=== PATIENT | male | born 1965 | race Caucasian/White ===

== ENCOUNTER 2016-07-04 09:57 | Inpatient (IN) | payer MEDICAID ==
[~2016-07-04] VITALS: Ht 175.3 cm; Wt 57.4 kg
[~2016-07-04 09:57] MED LIST: HALO10TA15 PO; RISP3 PO; THERAGRAN M1 TA1 PO
[2016-07-04 15:22] VITALS: BP 99/54
[2016-07-04] MEDS ORDERED: ZOLPIDEM TARTRATE 10 MG TABLET PO PRN (15:45)
[2016-07-04] MEDS ORDERED: PNEUMOCOCCAL VACCINE POLYVALENT 0.5 ML VIAL [PPSV23] IM ONE (16:15)
[2016-07-04] MEDS ORDERED: INFLUENZA VIRUS VACCINE QVS 2016-17 (3YR+)/PF 60 MCG/0.5 ML SYRINGE IM ONE (16:15)
[2016-07-04 16:28] VITALS: BP 113/68
[2016-07-04] MEDS: HALOPERIDOL 5 MG TABLET PO SCH (20:27)
[2016-07-05 06:07] VITALS: BP 110/70
[2016-07-05 08:09] VITALS: BP 109/59
[2016-07-05 08:10] LABS: BASOPHILS % (AUTO) 0.3 % (0.0-2.0); EOSINOPHILS % (AUTO) 5.5 % (1.0-6.0); HEMATOCRIT 39.2 % (41-53); HEMOGLOBIN 13.1 g/dL (13.5-17.5); LYMPHOCYTES # (AUTO) 1.3 K/uL (1.0-4.8); LYMPHOCYTES % (AUTO) 23.6 % (22.0-44.0); MEAN CORPUSCULAR HEMOGLOBIN 31.4 pg (26.0-34.0); MEAN CORPUSCULAR HGB CONC 33.3 G/dL (31.0-37.0); MEAN CORPUSCULAR VOLUME 94 fL (80-100); MONOCYTES # (AUTO) 0.5 K/uL (0.1-1.0); MONOCYTES % (AUTO) 8.2 % (2.0-9.0); NEUTROPHILS # (AUTO) 3.4 K/uL (1.8-7.7); NEUTROPHILS % (AUTO) 62.4 % (40.0-70.0); PLATELET COUNT (AUTO) 262 K/uL (150-450); RED BLOOD CELL COUNT(AUTO) 4.16 MIL/uL (4.50-5.90); RED CELL DISTRIBUTION WIDTH 14.1 % (11.5-14.5); WHITE BLOOD COUNT (AUTO) 5.5 K/uL (4.5-11.0)
[2016-07-05 08:33] LABS: ALANINE AMINOTRANSFERASE 31 U/L (12-78); ALBUMIN 3.1 g/dL (3.4-5.0); ANION GAP 2 mmol/L (8-16); ASPARTATE AMINOTRANSFERASE 26 U/L (15-37); BILIRUBIN,TOTAL 0.2 mg/dL (0.1-1.0); CALCIUM, TOTAL 8.6 mg/dL (8.8-10.5); CARBON DIOXIDE 35 mmol/L (22-29); CHLORIDE 105 mmol/L (98-107); CREATININE 0.91 mg/dL (0.60-1.30); GLOMERULAR FILTR. RATE CALC > 60 mL/min (>60); POTASSIUM 4.1 mmol/L (3.5-5.1); SODIUM SERUM 142 mmol/L (136-145); TOTAL PROTEIN, SERUM 6.1 g/dL (6.4-8.2); UREA NITROGEN, BLOOD 19 mg/dL (7-18)
[2016-07-05] MEDS: HALOPERIDOL 5 MG TABLET PO SCH ×2 (09:10→20:48)
[2016-07-05] MEDS: NICOTINE 21 MG/24 HOUR PATCH TD SCH (09:10)
[2016-07-05] MEDS: MULTIVITAMINS, THERAPEUTIC TABLET PO SCH (09:10)
[2016-07-05] MEDS ORDERED: MAG HYDROX/AL HYDROX/SIMETH ES 30 ML SUSPENSION UDCUP PO PRN (14:45)
[2016-07-05] MEDS ORDERED: IBUPROFEN 600 MG TABLET PO PRN (14:45)
[2016-07-05] MEDS ORDERED: ALBUTEROL SULFATE HFA 90 MCG/PUFF 8 GM INHALER IH PRN (14:45)
[2016-07-05] MEDS ORDERED: PETROLATUM,WHITE 71 GM JELLY TP PRN (14:45)
[2016-07-05] MEDS ORDERED: BACITRACIN 28.4 GM OINTMENT TP PRN (14:45)
[2016-07-05] MEDS ORDERED: LOPERAMIDE HCL 2 MG CAPSULE PO PRN (14:45)
[2016-07-05] MEDS ORDERED: MAGNESIUM HYDROXIDE SUSPENSION 30 ML UDCUP PO PRN (14:45)
[2016-07-05] MEDS ORDERED: CloNIDine HCL 0.1 MG TABLET PO PRN (14:45)
[2016-07-05] MEDS ORDERED: ACETAMINOPHEN 325 MG TABLET PO PRN (14:45)
[2016-07-05] MEDS ORDERED: ONDANSETRON HCL 4 MG TABLET PO PRN (14:45)
[2016-07-05] MEDS ORDERED: BENZOCAINE/MENTHOL LOZENGE MM PRN (14:45)
[2016-07-05 16:09] VITALS: BP 111/65
[2016-07-06 06:42] VITALS: BP 110/64
[2016-07-06 08:16] VITALS: BP 125/87
[2016-07-06] MEDS: HALOPERIDOL 5 MG TABLET PO SCH ×2 (08:29→20:43)
[2016-07-06] MEDS: LORazepam 2 MG TABLET PO PRN (08:29)
[2016-07-06] MEDS: MULTIVITAMINS, THERAPEUTIC TABLET PO SCH (08:29)
[2016-07-06] MEDS: NICOTINE 21 MG/24 HOUR PATCH TD SCH (08:30)
[2016-07-06 16:09] VITALS: BP 136/97
[2016-07-06 16:28] VITALS: BP 106/67
[2016-07-07 05:34] VITALS: BP 115/72
[2016-07-07 08:29] VITALS: BP 118/72
[2016-07-07] MEDS: NICOTINE 21 MG/24 HOUR PATCH TD SCH (09:52)
[2016-07-07] MEDS: MULTIVITAMINS, THERAPEUTIC TABLET PO SCH (09:52)
[2016-07-07] MEDS: HALOPERIDOL 10 MG TABLET PO SCH ×2 (09:52→20:25)
[2016-07-07 16:25] VITALS: BP 126/73
[2016-07-08 06:06] VITALS: BP 118/71
[2016-07-08 08:36] VITALS: BP 108/70
[2016-07-08] MEDS: MULTIVITAMINS, THERAPEUTIC TABLET PO SCH (10:02)
[2016-07-08] MEDS: HALOPERIDOL 10 MG TABLET PO SCH ×2 (10:02→20:49)
[2016-07-08] MEDS: NICOTINE 21 MG/24 HOUR PATCH TD SCH (10:03)
[2016-07-08 16:17] VITALS: BP 117/68
[2016-07-08] MEDS: LORazepam 2 MG TABLET PO PRN (20:49)
[2016-07-09 03:46] VITALS: BP 100/62
[2016-07-09 08:09] VITALS: BP 135/61
[2016-07-09] MEDS: MULTIVITAMINS, THERAPEUTIC TABLET PO SCH (09:49)
[2016-07-09] MEDS: HALOPERIDOL 10 MG TABLET PO SCH ×2 (09:49→20:36)
[2016-07-09] MEDS: NICOTINE 21 MG/24 HOUR PATCH TD SCH (09:49)
[2016-07-09 16:00] VITALS: BP 131/78
[2016-07-09] MEDS: HALOPERIDOL 5 MG TABLET PO PRN (16:35)
[2016-07-09] MEDS: LORazepam 2 MG TABLET PO PRN (16:35)
[2016-07-10 03:21] VITALS: BP 107/74
[2016-07-10] MEDS: LORazepam 2 MG TABLET PO PRN ×3 (03:21→20:24)
[2016-07-10 08:09] VITALS: BP 99/60
[2016-07-10] MEDS: MULTIVITAMINS, THERAPEUTIC TABLET PO SCH (09:04)
[2016-07-10] MEDS: NICOTINE 21 MG/24 HOUR PATCH TD SCH (09:04)
[2016-07-10] MEDS: HALOPERIDOL 10 MG TABLET PO SCH ×2 (09:04→20:24)
[2016-07-10 17:19] VITALS: BP 108/66
[2016-07-11 05:38] VITALS: BP 100/68
[2016-07-11 08:39] VITALS: BP 109/65
[2016-07-11] MEDS: NICOTINE 21 MG/24 HOUR PATCH TD SCH (09:59)
[2016-07-11] MEDS: MULTIVITAMINS, THERAPEUTIC TABLET PO SCH (10:00)
[2016-07-11] MEDS: LORazepam 2 MG TABLET PO PRN (10:00)
[2016-07-11] MEDS: HALOPERIDOL 10 MG TABLET PO SCH ×2 (10:00→20:51)
[2016-07-11 16:11] VITALS: BP 102/60
[2016-07-12 04:49] VITALS: BP 102/65
[2016-07-12 08:09] VITALS: BP 108/67
[2016-07-12] MEDS: LORazepam 2 MG TABLET PO PRN ×3 (09:29→20:44)
[2016-07-12] MEDS: NICOTINE 21 MG/24 HOUR PATCH TD SCH (09:29)
[2016-07-12] MEDS: MULTIVITAMINS, THERAPEUTIC TABLET PO SCH (09:29)
[2016-07-12] MEDS: HALOPERIDOL 10 MG TABLET PO SCH ×2 (09:29→20:44)
[2016-07-12 16:10] VITALS: BP 112/67
[2016-07-12] MEDS: DIVALPROEX SODIUM 500 MG DR TABLET PO SCH (20:44)
[2016-07-13 06:13] VITALS: BP 107/58
[2016-07-13 08:09] VITALS: BP 127/70
[2016-07-13] MEDS: DIVALPROEX SODIUM 500 MG DR TABLET PO SCH ×2 (09:57→20:40)
[2016-07-13] MEDS: LORazepam 2 MG TABLET PO PRN ×2 (09:58→17:12)
[2016-07-13] MEDS: HALOPERIDOL 10 MG TABLET PO SCH ×2 (09:58→20:40)
[2016-07-13] MEDS: NICOTINE 21 MG/24 HOUR PATCH TD SCH (09:58)
[2016-07-13] MEDS: MULTIVITAMINS, THERAPEUTIC TABLET PO SCH (09:58)
[2016-07-13 16:28] VITALS: BP 111/69
[2016-07-13] MEDS: HALOPERIDOL 5 MG TABLET PO PRN (17:12)
[2016-07-14 04:55] VITALS: BP 125/85
[2016-07-14 08:09] VITALS: BP 123/83
[2016-07-14] MEDS: DIVALPROEX SODIUM 500 MG DR TABLET PO SCH ×2 (08:54→20:10)
[2016-07-14] MEDS: NICOTINE 21 MG/24 HOUR PATCH TD SCH (08:54)
[2016-07-14] MEDS: HALOPERIDOL 10 MG TABLET PO SCH ×2 (08:54→20:10)
[2016-07-14] MEDS: MULTIVITAMINS, THERAPEUTIC TABLET PO SCH (08:54)
[2016-07-14] MEDS: LORazepam 2 MG TABLET PO PRN ×2 (08:54→20:10)
[2016-07-14 16:31] VITALS: BP 109/67
[2016-07-15 05:17] VITALS: BP 116/73
[2016-07-15 08:08] VITALS: BP 102/66
[2016-07-15] MEDS: LORazepam 2 MG TABLET PO PRN (09:27)
[2016-07-15] MEDS: HALOPERIDOL 10 MG TABLET PO SCH ×2 (09:27→20:43)
[2016-07-15] MEDS: MULTIVITAMINS, THERAPEUTIC TABLET PO SCH (09:27)
[2016-07-15] MEDS: DIVALPROEX SODIUM 500 MG DR TABLET PO SCH ×2 (09:27→20:43)
[2016-07-15] MEDS: NICOTINE 21 MG/24 HOUR PATCH TD SCH (09:27)
[2016-07-15 16:46] VITALS: BP 114/63
[2016-07-16 08:09] VITALS: BP 114/61
[2016-07-16] MEDS: HALOPERIDOL 10 MG TABLET PO SCH ×2 (09:21→20:55)
[2016-07-16] MEDS: DIVALPROEX SODIUM 500 MG DR TABLET PO SCH ×2 (09:21→20:55)
[2016-07-16] MEDS: NICOTINE 21 MG/24 HOUR PATCH TD SCH (09:21)
[2016-07-16] MEDS: MULTIVITAMINS, THERAPEUTIC TABLET PO SCH (09:21)
[2016-07-16] MEDS: LORazepam 2 MG TABLET PO PRN (09:21)
[2016-07-16 16:09] VITALS: BP 99/55
[2016-07-17 06:44] VITALS: BP 122/62
[2016-07-17 08:09] VITALS: BP 132/66
[2016-07-17] MEDS: MULTIVITAMINS, THERAPEUTIC TABLET PO SCH (09:31)
[2016-07-17] MEDS: DIVALPROEX SODIUM 500 MG DR TABLET PO SCH (09:31)
[2016-07-17] MEDS: NICOTINE 21 MG/24 HOUR PATCH TD SCH (09:31)
[2016-07-17] MEDS: LORazepam 2 MG TABLET PO PRN (09:32)
[2016-07-17] MEDS: HALOPERIDOL 10 MG TABLET PO SCH (09:32)
[2016-07-17] MEDS ORDERED: DIVA500T35 PO (09:43)
[2016-07-17] MEDS ORDERED: HALO10 PO (09:45)
== END 2016-07-17 11:25 | disposition home or self-care (01) | DRG 750 ==
LOC: B3A 15:51 → EDSTATUS 15:54
DX: F20.0 Paranoid schizophrenia (principal); I95.9 Hypotension, unspecified; F03.90 Unspecified dementia, unspecified severity, without behavioral disturbance, psychotic disturbance, mood disturbance, and anxiety; E46 Unspecified protein-calorie malnutrition; J44.9 Chronic obstructive pulmonary disease, unspecified; E83.51 Hypocalcemia; Z59.0 Homelessness; F17.200 Nicotine dependence, unspecified, uncomplicated; R73.9 Hyperglycemia, unspecified; Z79.899 Other long term (current) drug therapy; Z71.6 Tobacco abuse counseling; Z68.1 Body mass index [BMI] 19.9 or less, adult; Z28.21 Immunization not carried out because of patient refusal
CPT/HCPCS: 87081

== ENCOUNTER 2018-01-17 23:09 | Emergency (ER) | payer MEDICAID ==
[~2018-01-17] VITALS: Ht 175.3 cm; Wt 75.5 kg
[~2018-01-17 23:09] MED LIST changes: +DIVA-78 PO; +HALO10 PO; -HALO10TA15 PO; -RISP3 PO; -THERAGRAN M1 TA1 PO
[2018-01-17] MEDS ORDERED: LITH600 PO (23:24)
[2018-01-17] MEDS ORDERED: OXCA300T PO (23:24)
[2018-01-17] MEDS ORDERED: OLAN10TA6 PO (23:24)
[2018-01-17] MEDS ORDERED: CHOL200016 PO (23:24)
[2018-01-17] MEDS ORDERED: MULT1CAP32 PO (23:24)
[2018-01-17] MEDS ORDERED: HALO100V4 IM (23:24)
[2018-01-18 00:30] LABS: BASOPHILS % (AUTO) 0.6 % (0.0-2.0); HEMATOCRIT 39.3 % (41-53); HEMOGLOBIN 13.6 g/dL (13.5-17.5); LYMPHOCYTES # (AUTO) 0.9 K/uL (1.0-4.8); LYMPHOCYTES % (AUTO) 12.9 % (22.0-44.0); MEAN CORPUSCULAR HEMOGLOBIN 30.2 pg (26.0-34.0); MEAN CORPUSCULAR HGB CONC 34.6 G/dL (31.0-37.0); MEAN CORPUSCULAR VOLUME 87 fL (80-100); MONOCYTES # (AUTO) 0.5 K/uL (0.1-1.0); MONOCYTES % (AUTO) 7.6 % (2.0-9.0); NEUTROPHILS # (AUTO) 5.5 K/uL (1.8-7.7); NEUTROPHILS % (AUTO) 75.9 % (40.0-70.0); PLATELET COUNT (AUTO) 315 K/uL (150-450); RED BLOOD CELL COUNT(AUTO) 4.51 MIL/uL (4.50-5.90); RED CELL DISTRIBUTION WIDTH 14.6 % (11.5-14.5)
[2018-01-18 00:38] LABS: ANION GAP 8 mmol/L (8-16); CALCIUM, TOTAL 8.3 mg/dL (8.8-10.5); CARBON DIOXIDE 28 mmol/L (22-29); CHLORIDE 105 mmol/L (98-107); CREATININE 0.88 mg/dL (0.60-1.30); GLOMERULAR FILTR. RATE CALC > 60 mL/min (>60); GLUCOSE,RANDOM 110 mg/dL (70-110); POTASSIUM 3.6 mmol/L (3.5-5.1); SODIUM SERUM 141 mmol/L (136-145); UREA NITROGEN, BLOOD 10 mg/dL (7-18)
[2018-01-18 00:46] LABS: ALANINE AMINOTRANSFERASE 48 U/L (12-78); ALBUMIN 3.6 g/dL (3.4-5.0); ALKALINE PHOSPHATASE 87 U/L (46-116); ASPARTATE AMINOTRANSFERASE 19 U/L (15-37); BILIRUBIN,TOTAL 0.2 mg/dL (0.1-1.0); TOTAL PROTEIN, SERUM 6.7 g/dL (6.4-8.2)
[2018-01-18 01:00] LABS: APPEARANCE,URINE CLEAR (CLEAR); BILIRUBIN,URINE NEGATIVE (NEGATIVE); GLUCOSE, URINE (UA) NEGATIVE (NEGATIVE); KETONES,URINE NEGATIVE (NEGATIVE); LEUKOCYTE ESTERASE ,URINE NEGATIVE (NEGATIVE); NITRATE,URINE NEGATIVE (NEGATIVE); OCCULT BLOOD,URINE NEGATIVE (NEGATIVE); PH,URINE 5.5 (5.0-8.0); PROTEIN,URINE NEGATIVE (NEGATIVE); UROBILINOGEN,URINE 0.2 mg/dL (<=1.0)
[2018-01-18 01:05] LABS: AMPHET/METH SCREEN,URINE NEGATIVE (NEGATIVE); BARBITURATE SCREEN, URINE NEGATIVE (NEGATIVE); BENZODIAZEPINES SCREEN,URINE NEGATIVE (NEGATIVE); CANNABINOID SCREEN,URINE NEGATIVE (NEGATIVE); COCAINE SCREEN,URINE NEGATIVE (NEGATIVE); METHADONE SCREEN, URINE NEGATIVE (NEGATIVE); OPIATE SCREEN,URINE NEGATIVE (NEGATIVE); PHENCYCLIDINE SCREEN,URINE NEGATIVE (NEGATIVE)
[2018-01-18 01:21] LABS: BACTERIA,URINE None Seen /HPF (None Seen); RBC,URINE 0-2 /HPF (0-2); SQUAMOUS EPITHELIAL CELL,UR Rare /LPF (None Seen); WBC,URINE 0-2 /HPF (0-5)
[2018-01-18] MEDS ORDERED: DiphenhydrAMINE HCL 25 MG CAPSULE PO ONE (02:30)
[2018-01-18 02:54] VITALS: BP 105/61
== END 2018-01-18 02:58 | disposition home or self-care (01) ==
LOC: EMS 23:11
DX: G25.9 Extrapyramidal and movement disorder, unspecified (principal); F20.9 Schizophrenia, unspecified; F17.210 Nicotine dependence, cigarettes, uncomplicated; Z79.899 Other long term (current) drug therapy
CPT/HCPCS: 36415; 70450; 80053; 80178; 80307; 81001; 85025; 99285; G0480

== ENCOUNTER 2019-01-11 18:48 | Inpatient (IN) | payer MEDICAID ==
[~2019-01-11] VITALS: Ht 175.3 cm; Wt 69.5 kg
[~2019-01-11 18:48] MED LIST changes: +CHOL200059 PO; -DIVA-78 PO; -HALO10 PO; +HALO100V4 IM; +LITH600 PO; +MULT1CAP32 PO; +OLAN10TA6 PO; +OXCA300T29 PO
[2019-01-11] MEDS ORDERED: BENZ-51 PO (19:30)
[2019-01-11] MEDS ORDERED: IPRAHFA IH (19:30)
[2019-01-11] MEDS ORDERED: ALBU8.5H8 IH (19:30)
[2019-01-11] MEDS ORDERED: ATOR20TA86 PO (19:30)
[2019-01-11] MEDS ORDERED: GUAI100S35 PO (19:30)
[2019-01-11] MEDS ORDERED: SODIUM CHLORIDE 0.9% 2,050 ML IV ONE (19:56)
[2019-01-11] MEDS ORDERED: 0.9% SODIUM CHLORIDE 10 ML SYRINGE IVP PRN ×2 (20:00→22:15)
[2019-01-11 20:10] LABS: GLUCOSE,POINT OF CARE 107 MG/DL (70-110)
[2019-01-11 20:25] LABS: BASOPHILS % (AUTO) 0.7 % (0.0-2.0); HEMATOCRIT 41.1 % (41-53); HEMOGLOBIN 13.4 g/dL (13.5-17.5); LYMPHOCYTES # (AUTO) 0.9 K/uL (1.0-4.8); LYMPHOCYTES % (AUTO) 9.9 % (22.0-44.0); MEAN CORPUSCULAR HEMOGLOBIN 30.9 pg (26.0-34.0); MEAN CORPUSCULAR HGB CONC 32.5 G/dL (31.0-37.0); MEAN CORPUSCULAR VOLUME 95 fL (80-100); MONOCYTES # (AUTO) 1.1 K/uL (0.1-1.0); MONOCYTES % (AUTO) 11.3 % (2.0-9.0); NEUTROPHILS # (AUTO) 6.9 K/uL (1.8-7.7); NEUTROPHILS % (AUTO) 74.1 % (40.0-70.0); PLATELET COUNT (AUTO) 202 K/uL (150-450); RED BLOOD CELL COUNT(AUTO) 4.33 MIL/uL (4.50-5.90)
[2019-01-11] MEDS ORDERED: DOXYCYCLINE HYCLATE 100 MG in DEXTROSE 5%-WATER 100 ML IV ONE (20:30)
[2019-01-11 20:35] LABS: ANION GAP 6 mmol/L (8-16); CALCIUM, TOTAL 9.5 mg/dL (8.8-10.5); CARBON DIOXIDE 31 mmol/L (22-29); CHLORIDE 100 mmol/L (98-107); CREATININE 0.82 mg/dL (0.60-1.30); GLOMERULAR FILTR. RATE CALC > 60 mL/min (>60); GLUCOSE,RANDOM 105 mg/dL (70-110); SODIUM SERUM 137 mmol/L (136-145); UREA NITROGEN, BLOOD 13 mg/dL (7-18)
[2019-01-11 20:37] LABS: INR 0.9 (0.9-1.1); PROTHROMBIN TIME 9.9 SEC (9.4-11.6)
[2019-01-11 20:41] LABS: ALANINE AMINOTRANSFERASE 24 U/L (12-78); ALBUMIN 3.3 g/dL (3.4-5.0); ALKALINE PHOSPHATASE 81 U/L (46-116); ASPARTATE AMINOTRANSFERASE 13 U/L (15-37); BILIRUBIN,TOTAL 0.4 mg/dL (0.1-1.0); TOTAL PROTEIN, SERUM 6.8 g/dL (6.4-8.2)
[2019-01-11 20:46] LABS: LACTIC ACID 0.8 mmol/L (0.4-2.0)
[2019-01-11 20:58] LABS: LITHIUM 0.66 mmol/L (0.60-1.20)
[2019-01-11 20:58] LABS: INFLUENZA TYPE A NEGATIVE FOR TYPE A (NEGATIVE); INFLUENZA TYPE B NEGATIVE FOR TYPE B (NEGATIVE)
[2019-01-11] MEDS ORDERED: ONDANSETRON HCL 4 MG/2 ML VIAL IVP PRN ×2 (22:15→23:00)
[2019-01-11] MEDS ORDERED: ACETAMINOPHEN 325 MG TABLET PO PRN ×2 (22:15→23:00)
[2019-01-11] MEDS ORDERED: MORPHINE SULFATE 2 MG/ML SYRINGE IVP PRN (23:00)
[2019-01-11] MEDS ORDERED: HYDROCODONE/ACETAMINOPHEN 5-325 MG TABLET PO PRN (23:00)
[2019-01-11] MEDS ORDERED: IPRATROPIUM BROMIDE HFA 17 MCG/PUFF 12.9 GM INHALER IH PRN (23:00)
[2019-01-11] MEDS ORDERED: ALBUTEROL SULFATE HFA 90 MCG/PUFF 8 GM INHALER IH PRN (23:00)
[2019-01-11] MEDS ORDERED: SODIUM CHLORIDE 0.9% 1,000 ML IV ONE (23:00)
[2019-01-11] MEDS ORDERED: MAGNESIUM HYDROXIDE SUSPENSION 30 ML UDCUP PO PRN (23:00)
[2019-01-11] MEDS ORDERED: BISACODYL 10 MG RECTAL RECTAL SUPPOSITORY PR PRN (23:00)
[2019-01-11] MEDS ORDERED: ZOLPIDEM TARTRATE 5 MG TABLET PO PRN (23:00)
[2019-01-11] MEDS ORDERED: VANCOMYCIN HCL 1.25 GM in DEXTROSE 5%-WATER 250 ML IV ONE (23:30)
[2019-01-12] VITALS (7 sets, daily range): BP systolic 99–125; BP diastolic 56–75
[2019-01-12] MEDS: HEPARIN SODIUM,PORCINE 5,000 UNITS/ML VIAL SQ SCH ×3 (00:58→15:33)
[2019-01-12 07:23] LABS: BASOPHILS % (AUTO) 0.4 % (0.0-2.0); EOSINOPHILS % (AUTO) 5.2 % (1.0-6.0); HEMATOCRIT 38.1 % (41-53); HEMOGLOBIN 12.5 g/dL (13.5-17.5); LYMPHOCYTES # (AUTO) 0.7 K/uL (1.0-4.8); LYMPHOCYTES % (AUTO) 9.7 % (22.0-44.0); MEAN CORPUSCULAR HEMOGLOBIN 31.1 pg (26.0-34.0); MEAN CORPUSCULAR HGB CONC 32.8 G/dL (31.0-37.0); MEAN CORPUSCULAR VOLUME 95 fL (80-100); MONOCYTES # (AUTO) 0.8 K/uL (0.1-1.0); MONOCYTES % (AUTO) 11.8 % (2.0-9.0); NEUTROPHILS # (AUTO) 5.2 K/uL (1.8-7.7); NEUTROPHILS % (AUTO) 72.9 % (40.0-70.0); PLATELET COUNT (AUTO) 189 K/uL (150-450); RED BLOOD CELL COUNT(AUTO) 4.01 MIL/uL (4.50-5.90); RED CELL DISTRIBUTION WIDTH 14.4 % (11.5-14.5)
[2019-01-12 07:40] LABS: ALANINE AMINOTRANSFERASE 22 U/L (12-78); ALBUMIN 2.8 g/dL (3.4-5.0); ALKALINE PHOSPHATASE 72 U/L (46-116); ANION GAP 4 mmol/L (8-16); ASPARTATE AMINOTRANSFERASE 14 U/L (15-37); BILIRUBIN,TOTAL 0.4 mg/dL (0.1-1.0); CALCIUM, TOTAL 8.7 mg/dL (8.8-10.5); CARBON DIOXIDE 29 mmol/L (22-29); CHLORIDE 109 mmol/L (98-107); CREATININE 0.71 mg/dL (0.60-1.30); GLOMERULAR FILTR. RATE CALC > 60 mL/min (>60); GLUCOSE,RANDOM 93 mg/dL (70-110); POTASSIUM 3.9 mmol/L (3.5-5.1); SODIUM SERUM 142 mmol/L (136-145); TOTAL PROTEIN, SERUM 5.8 g/dL (6.4-8.2); UREA NITROGEN, BLOOD 8 mg/dL (7-18)
[2019-01-12] MEDS ORDERED: VANCOMYCIN HCL 1 GM/D5% WATER 200 ML IV SCH (08:00)
[2019-01-12] MEDS: DOCUSATE SODIUM 100 MG CAPSULE PO SCH ×2 (08:18→21:00)
[2019-01-12] MEDS: BENZONATATE 100 MG CAPSULE PO SCH ×2 (08:18→20:26)
[2019-01-12] MEDS: ATORVASTATIN CALCIUM 20 MG TABLET PO SCH (08:18)
[2019-01-12] MEDS: PANTOPRAZOLE SODIUM 40 MG DR TABLET PO SCH (08:18)
[2019-01-12] MEDS: CHOLECALCIFEROL (VIT D3) 2,000 UNITS TABLET PO SCH (08:18)
[2019-01-12] MEDS: VANCOMYCIN HCL 750 MG in DEXTROSE 5%-WATER 250 ML IV SCH ×3 (08:19→23:24)
[2019-01-12] MEDS: CefTRIAXone 1 GM/DEXTROSE 50 ML IV SCH (10:44)
[2019-01-12] MEDS: LITHIUM CARBONATE 600 MG CAPSULE PO SCH (20:26)
[2019-01-12] MEDS: OLANZapine 10 MG RAPDIS TABLET PO SCH (20:27)
[2019-01-12] MEDS: OXcarbazepine 300 MG TABLET PO SCH (20:27)
[2019-01-13] MEDS: HEPARIN SODIUM,PORCINE 5,000 UNITS/ML VIAL SQ SCH ×3 (00:53→14:57)
[2019-01-13 05:07] VITALS: BP 119/74
[2019-01-13 05:47] LABS: BASOPHILS % (AUTO) 0.4 % (0.0-2.0); EOSINOPHILS % (AUTO) 8.3 % (1.0-6.0); HEMATOCRIT 41.4 % (41-53); HEMOGLOBIN 13.6 g/dL (13.5-17.5); LYMPHOCYTES % (AUTO) 20.4 % (22.0-44.0); MEAN CORPUSCULAR HGB CONC 32.7 G/dL (31.0-37.0); MEAN CORPUSCULAR VOLUME 95 fL (80-100); MONOCYTES # (AUTO) 0.5 K/uL (0.1-1.0); MONOCYTES % (AUTO) 9.3 % (2.0-9.0); NEUTROPHILS # (AUTO) 3.1 K/uL (1.8-7.7); NEUTROPHILS % (AUTO) 61.6 % (40.0-70.0); PLATELET COUNT (AUTO) 242 K/uL (150-450); RED BLOOD CELL COUNT(AUTO) 4.38 MIL/uL (4.50-5.90); RED CELL DISTRIBUTION WIDTH 14.5 % (11.5-14.5)
[2019-01-13 06:10] LABS: ANION GAP 9 mmol/L (8-16); CALCIUM, TOTAL 9.4 mg/dL (8.8-10.5); CARBON DIOXIDE 32 mmol/L (22-29); CHLORIDE 106 mmol/L (98-107); CREATININE 0.76 mg/dL (0.60-1.30); GLOMERULAR FILTR. RATE CALC > 60 mL/min (>60); GLUCOSE,RANDOM 90 mg/dL (70-110); POTASSIUM 4.2 mmol/L (3.5-5.1); SODIUM SERUM 147 mmol/L (136-145); UREA NITROGEN, BLOOD 8 mg/dL (7-18)
[2019-01-13 07:40] VITALS: BP 110/67
[2019-01-13] MEDS: DOCUSATE SODIUM 100 MG CAPSULE PO SCH ×2 (08:01→20:38)
[2019-01-13] MEDS: VANCOMYCIN HCL 750 MG in DEXTROSE 5%-WATER 250 ML IV SCH ×3 (08:01→23:54)
[2019-01-13] MEDS: OXcarbazepine 300 MG TABLET PO SCH ×2 (08:01→20:38)
[2019-01-13] MEDS: OLANZapine 10 MG RAPDIS TABLET PO SCH ×2 (08:01→20:38)
[2019-01-13] MEDS: PANTOPRAZOLE SODIUM 40 MG DR TABLET PO SCH (08:01)
[2019-01-13] MEDS: BENZONATATE 100 MG CAPSULE PO SCH ×2 (08:01→20:38)
[2019-01-13] MEDS: ATORVASTATIN CALCIUM 20 MG TABLET PO SCH (08:04)
[2019-01-13 08:23] LABS: APPEARANCE,URINE CLEAR (CLEAR); BILIRUBIN,URINE NEGATIVE (NEGATIVE); GLUCOSE, URINE (UA) NEGATIVE (NEGATIVE); KETONES,URINE NEGATIVE (NEGATIVE); LEUKOCYTE ESTERASE ,URINE NEGATIVE (NEGATIVE); NITRATE,URINE NEGATIVE (NEGATIVE); OCCULT BLOOD,URINE NEGATIVE (NEGATIVE); PROTEIN,URINE NEGATIVE (NEGATIVE); UROBILINOGEN,URINE 0.2 mg/dL (<=1.0)
[2019-01-13] MEDS: CHOLECALCIFEROL (VIT D3) 2,000 UNITS TABLET PO SCH (09:30)
[2019-01-13] MEDS: CefTRIAXone 1 GM/DEXTROSE 50 ML IV SCH (09:31)
[2019-01-13 11:20] VITALS: BP 114/70
[2019-01-13 15:34] VITALS: BP 105/66
[2019-01-13 19:37] VITALS: BP 111/65
[2019-01-13] MEDS: LITHIUM CARBONATE 600 MG CAPSULE PO SCH (20:38)
[2019-01-13 23:22] VITALS: BP 108/65
[2019-01-14] MEDS: HEPARIN SODIUM,PORCINE 5,000 UNITS/ML VIAL SQ SCH ×2 (00:38→09:36)
[2019-01-14 04:06] VITALS: BP 100/58
[2019-01-14 06:20] LABS: BASOPHILS % (AUTO) 1.1 % (0.0-2.0); EOSINOPHILS % (AUTO) 8.7 % (1.0-6.0); HEMATOCRIT 38.2 % (41-53); HEMOGLOBIN 12.6 g/dL (13.5-17.5); LYMPHOCYTES % (AUTO) 24.5 % (22.0-44.0); MEAN CORPUSCULAR HEMOGLOBIN 30.9 pg (26.0-34.0); MEAN CORPUSCULAR VOLUME 94 fL (80-100); MONOCYTES # (AUTO) 0.3 K/uL (0.1-1.0); MONOCYTES % (AUTO) 8.4 % (2.0-9.0); NEUTROPHILS # (AUTO) 2.2 K/uL (1.8-7.7); NEUTROPHILS % (AUTO) 57.3 % (40.0-70.0); PLATELET COUNT (AUTO) 242 K/uL (150-450); RED BLOOD CELL COUNT(AUTO) 4.07 MIL/uL (4.50-5.90); RED CELL DISTRIBUTION WIDTH 14.2 % (11.5-14.5)
[2019-01-14 06:32] LABS: ANION GAP 4 mmol/L (8-16); CALCIUM, TOTAL 9.4 mg/dL (8.8-10.5); CARBON DIOXIDE 32 mmol/L (22-29); CHLORIDE 107 mmol/L (98-107); CREATININE 0.67 mg/dL (0.60-1.30); GLOMERULAR FILTR. RATE CALC > 60 mL/min (>60); GLUCOSE,RANDOM 90 mg/dL (70-110); POTASSIUM 4.1 mmol/L (3.5-5.1); SODIUM SERUM 143 mmol/L (136-145); UREA NITROGEN, BLOOD 12 mg/dL (7-18)
[2019-01-14 07:36] VITALS: BP 110/67
[2019-01-14] MEDS: CefTRIAXone 1 GM/DEXTROSE 50 ML IV SCH (09:33)
[2019-01-14] MEDS: VANCOMYCIN HCL 750 MG in DEXTROSE 5%-WATER 250 ML IV SCH (09:33)
[2019-01-14] MEDS: CHOLECALCIFEROL (VIT D3) 2,000 UNITS TABLET PO SCH (09:36)
[2019-01-14] MEDS: OLANZapine 10 MG RAPDIS TABLET PO SCH (09:36)
[2019-01-14] MEDS: DOCUSATE SODIUM 100 MG CAPSULE PO SCH (09:36)
[2019-01-14] MEDS: OXcarbazepine 300 MG TABLET PO SCH (09:37)
[2019-01-14] MEDS: BENZONATATE 100 MG CAPSULE PO SCH (09:37)
[2019-01-14] MEDS: ATORVASTATIN CALCIUM 20 MG TABLET PO SCH (09:37)
[2019-01-14] MEDS: PANTOPRAZOLE SODIUM 40 MG DR TABLET PO SCH (09:37)
[2019-01-14 12:23] VITALS: BP 122/76
[2019-01-14] MEDS ORDERED: IPRAHFA IH (14:18)
[2019-01-14] MEDS ORDERED: CEPH500 PO (14:19)
[2019-01-14] MEDS ORDERED: DOXY150T PO ×2 (14:19→14:20)
== END 2019-01-14 15:30 | disposition home or self-care (01) | DRG 52 ==
LOC: EMS 18:51 → 4E 22:00
PROVIDERS: ADMIT Internal Medicine; ATTEND Internal Medicine
DX: G92 Toxic encephalopathy (principal); F25.0 Schizoaffective disorder, bipolar type; L03.113 Cellulitis of right upper limb; E55.9 Vitamin D deficiency, unspecified; J45.909 Unspecified asthma, uncomplicated; L03.114 Cellulitis of left upper limb; E78.5 Hyperlipidemia, unspecified; E78.00 Pure hypercholesterolemia, unspecified; Z87.891 Personal history of nicotine dependence
CPT/HCPCS: 70450; 83605; 87040; 87804; 93005; G0378; J0696; J1644; J3370; J3490; J7030; J7060

== ENCOUNTER 2019-04-04 11:22 | Emergency (ER) | payer MEDICAID ==
[~2019-04-04] VITALS: Ht 177.8 cm; Wt 79.0 kg
[~2019-04-04 11:22] MED LIST changes: +ALBU8.5H8 IH; +ATOR20TA86 PO; +BENZ-51 PO; +CEPH500 PO; +DOXY150T5 PO; +IPRAHFA IH; +[UNRECOGNIZED DRUG - CODE] PO
[2019-04-04 12:55] LABS: BASOPHILS % (AUTO) 0.5 % (0.0-2.0); EOSINOPHILS % (AUTO) 2.2 % (1.0-6.0); HEMATOCRIT 44.3 % (41-53); HEMOGLOBIN 14.9 g/dL (13.5-17.5); LYMPHOCYTES # (AUTO) 0.6 K/uL (1.0-4.8); LYMPHOCYTES % (AUTO) 11.3 % (22.0-44.0); MEAN CORPUSCULAR HEMOGLOBIN 31.2 pg (26.0-34.0); MEAN CORPUSCULAR HGB CONC 33.5 G/dL (31.0-37.0); MEAN CORPUSCULAR VOLUME 93 fL (80-100); MONOCYTES # (AUTO) 0.3 K/uL (0.1-1.0); MONOCYTES % (AUTO) 6.3 % (2.0-9.0); NEUTROPHILS # (AUTO) 4.2 K/uL (1.8-7.7); NEUTROPHILS % (AUTO) 79.7 % (40.0-70.0); PLATELET COUNT (AUTO) 224 K/uL (150-450); RED BLOOD CELL COUNT(AUTO) 4.77 MIL/uL (4.50-5.90); RED CELL DISTRIBUTION WIDTH 13.7 % (11.5-14.5)
[2019-04-04 13:06] LABS: LITHIUM 0.71 mmol/L (0.60-1.20)
[2019-04-04 13:07] LABS: ANION GAP 8 mmol/L (8-16); CALCIUM, TOTAL 8.6 mg/dL (8.8-10.5); CARBON DIOXIDE 30 mmol/L (22-29); CHLORIDE 106 mmol/L (98-107); CREATININE 0.79 mg/dL (0.60-1.30); GLOMERULAR FILTR. RATE CALC > 60 mL/min (>60); GLUCOSE,RANDOM 131 mg/dL (70-110); POTASSIUM 4.1 mmol/L (3.5-5.1); SODIUM SERUM 144 mmol/L (136-145); UREA NITROGEN, BLOOD 10 mg/dL (7-18)
[2019-04-04 13:13] LABS: ALANINE AMINOTRANSFERASE 35 U/L (12-78); ALBUMIN 3.9 g/dL (3.4-5.0); ALKALINE PHOSPHATASE 99 U/L (46-116); ASPARTATE AMINOTRANSFERASE 15 U/L (15-37); BILIRUBIN,TOTAL 0.3 mg/dL (0.1-1.0); CREATINE KINASE, TOTAL ONLY 46 U/L (39-308); TOTAL PROTEIN, SERUM 6.9 g/dL (6.4-8.2)
[2019-04-04 13:15] LABS: LACTIC ACID 0.8 mmol/L (0.4-2.0)
[2019-04-04 15:48] VITALS: BP 118/79
== END 2019-04-04 16:29 | disposition home or self-care (01) ==
LOC: EMS 11:23
DX: S50.811A Abrasion of right forearm, initial encounter (principal); R53.1 Weakness; E78.00 Pure hypercholesterolemia, unspecified; F20.9 Schizophrenia, unspecified; F17.210 Nicotine dependence, cigarettes, uncomplicated; Z79.899 Other long term (current) drug therapy; W01.0XXA Fall on same level from slipping, tripping and stumbling without subsequent striking against object, initial encounter; Y93.89 Activity, other specified; Y92.89 Other specified places as the place of occurrence of the external cause; Y99.8 Other external cause status
CPT/HCPCS: 70450; 83605; 83735; 93005

== ENCOUNTER 2019-07-08 16:58 | Emergency (ER) | payer MEDICAID ==
[~2019-07-08] VITALS: Ht 170.2 cm; Wt 68.2 kg
[~2019-07-08 16:58] MED LIST changes: -BENZ-51 PO; -CEPH500 PO; +CHOL200016 PO; -CHOL200059 PO; -DOXY150T5 PO; -[UNRECOGNIZED DRUG - CODE] PO
[2019-07-08] MEDS ORDERED: DIVA250T45 PO (17:41)
[2019-07-08] MEDS ORDERED: LITH300C3 PO (17:41)
[2019-07-08 17:43] LABS: GLUCOSE,POINT OF CARE 82 MG/DL (70-110)
[2019-07-08] MEDS ORDERED: IPRATROPIUM BROMIDE 0.5 MG/2.5 ML NEB SOLUTION NEB ONE (18:15)
[2019-07-08] MEDS ORDERED: ALBUTEROL SULFATE 5 MG/ML 20 ML NEB SOLN [BULK] NEB ONE (18:15)
[2019-07-08] MEDS ORDERED: 0.9% SODIUM CHLORIDE 5 ML NEB SOLUTION NEB ONE (18:45)
[2019-07-08 19:55] VITALS: BP 120/79
== END 2019-07-08 20:06 | disposition home or self-care (01) ==
LOC: EMS 17:00
DX: J44.9 Chronic obstructive pulmonary disease, unspecified (principal); E78.00 Pure hypercholesterolemia, unspecified; F20.9 Schizophrenia, unspecified; F17.210 Nicotine dependence, cigarettes, uncomplicated
CPT/HCPCS: 94640

== ENCOUNTER 2021-01-13 11:22 | Emergency (ER) | payer MEDICAID ==
[~2021-01-13] VITALS: Ht 172.7 cm; Wt 75.0 kg
[~2021-01-13 11:22] MED LIST changes: -CHOL200016 PO; +DIVA-85 PO; -HALO100V4 IM; +LITH300C3 PO; -LITH600 PO; +OLAN10TA26 PO; -OLAN10TA6 PO; -OXCA300T29 PO
[2021-01-13 12:40] LABS: BASOPHILS % (AUTO) 0.2 % (0.0-2.0); HEMATOCRIT 44.8 % (41-53); LYMPHOCYTES # (AUTO) 0.9 K/uL (1.0-4.8); LYMPHOCYTES % (AUTO) 13.3 % (22.0-44.0); MEAN CORPUSCULAR HEMOGLOBIN 31.4 pg (26.0-34.0); MEAN CORPUSCULAR HGB CONC 33.5 G/dL (31.0-37.0); MEAN CORPUSCULAR VOLUME 94 fL (80-100); MONOCYTES # (AUTO) 0.5 K/uL (0.1-1.0); MONOCYTES % (AUTO) 7.1 % (2.0-9.0); NEUTROPHILS # (AUTO) 5.4 K/uL (1.8-7.7); NEUTROPHILS % (AUTO) 76.4 % (40.0-70.0); PLATELET COUNT (AUTO) 220 K/uL (150-450); RED BLOOD CELL COUNT(AUTO) 4.78 MIL/uL (4.50-5.90); RED CELL DISTRIBUTION WIDTH 13.5 % (11.5-14.5)
[2021-01-13 12:51] LABS: ANION GAP 6 mmol/L (8-16); CALCIUM, TOTAL 8.8 mg/dL (8.8-10.5); CARBON DIOXIDE 30 mmol/L (22-29); CHLORIDE 106 mmol/L (98-107); CREATININE 0.76 mg/dL (0.60-1.30); GLOMERULAR FILTR. RATE CALC > 60 mL/min (>60); GLUCOSE,RANDOM 92 mg/dL (70-110); LITHIUM 0.74 mmol/L (0.60-1.20); POTASSIUM 4.2 mmol/L (3.5-5.1); SODIUM SERUM 142 mmol/L (136-145); UREA NITROGEN, BLOOD 11 mg/dL (7-18)
[2021-01-13 12:53] LABS: PROTHROMBIN TIME 10.3 SEC (9.4-11.6)
[2021-01-13 12:58] LABS: ALANINE AMINOTRANSFERASE 36 U/L (12-78); ALBUMIN 3.8 g/dL (3.4-5.0); ALKALINE PHOSPHATASE 106 U/L (46-116); ASPARTATE AMINOTRANSFERASE 15 U/L (15-37); BILIRUBIN,TOTAL 0.3 mg/dL (0.1-1.0); CREATINE KINASE, TOTAL ONLY 52 U/L (39-308); TOTAL PROTEIN, SERUM 6.7 g/dL (6.4-8.2); VALPROIC ACID < 3 mcg/mL (50-100)
[2021-01-13 12:59] LABS: APPEARANCE,URINE CLEAR (CLEAR); BILIRUBIN,URINE NEGATIVE (NEGATIVE); GLUCOSE, URINE (UA) NEGATIVE (NEGATIVE); KETONES,URINE NEGATIVE (NEGATIVE); LEUKOCYTE ESTERASE ,URINE NEGATIVE (NEGATIVE); NITRATE,URINE NEGATIVE (NEGATIVE); OCCULT BLOOD,URINE NEGATIVE (NEGATIVE); PROTEIN,URINE NEGATIVE (NEGATIVE); UROBILINOGEN,URINE 0.2 mg/dL (<=1.0)
[2021-01-13 13:04] LABS: AMPHET/METH SCREEN,URINE NEGATIVE (NEGATIVE); BARBITURATE SCREEN, URINE NEGATIVE (NEGATIVE); BENZODIAZEPINES SCREEN,URINE NEGATIVE (NEGATIVE); CANNABINOID SCREEN,URINE NEGATIVE (NEGATIVE); COCAINE SCREEN,URINE NEGATIVE (NEGATIVE); METHADONE SCREEN, URINE NEGATIVE (NEGATIVE); OPIATE SCREEN,URINE NEGATIVE (NEGATIVE); PHENCYCLIDINE SCREEN,URINE NEGATIVE (NEGATIVE)
[2021-01-13] MEDS ORDERED: BENZTROPINE MESYLATE 1 MG TABLET PO ONE (13:30)
[2021-01-13] MEDS ORDERED: VALPROIC ACID 250 MG CAPSULE PO ONE (13:45)
[2021-01-13 15:05] VITALS: BP 126/62
== END 2021-01-13 15:32 | disposition home or self-care (01) ==
LOC: EMS 11:22
DX: F41.9 Anxiety disorder, unspecified (principal); F20.9 Schizophrenia, unspecified; R56.9 Unspecified convulsions; R25.1 Tremor, unspecified; J44.9 Chronic obstructive pulmonary disease, unspecified; E78.00 Pure hypercholesterolemia, unspecified; F17.210 Nicotine dependence, cigarettes, uncomplicated
CPT/HCPCS: 36415; 70450; 71045; 80053; 80164; 80178; 80307; 81003; 82550; 82962; 84484; 85025; 85610; 85730; 93005; 99285; G0480

== ENCOUNTER 2021-02-19 15:30 | Emergency (ER) | payer MEDICAID ==
[~2021-02-19] VITALS: Ht 172.7 cm; Wt 72.7 kg
[2021-02-19 17:28] LABS: COVID AG,FIA SOURCE NASOPHARYNGEAL
[2021-02-19 17:32] LABS: BASOPHILS % (AUTO) 0.5 % (0.0-2.0); EOSINOPHILS % (AUTO) 6.3 % (1.0-6.0); HEMATOCRIT 41.9 % (41-53); HEMOGLOBIN 13.8 g/dL (13.5-17.5); LYMPHOCYTES # (AUTO) 1.1 K/uL (1.0-4.8); LYMPHOCYTES % (AUTO) 17.4 % (22.0-44.0); MEAN CORPUSCULAR HEMOGLOBIN 31.6 pg (26.0-34.0); MEAN CORPUSCULAR HGB CONC 32.9 G/dL (31.0-37.0); MEAN CORPUSCULAR VOLUME 96 fL (80-100); MONOCYTES # (AUTO) 0.5 K/uL (0.1-1.0); MONOCYTES % (AUTO) 7.8 % (2.0-9.0); NEUTROPHILS # (AUTO) 4.2 K/uL (1.8-7.7); PLATELET COUNT (AUTO) 219 K/uL (150-450); RED BLOOD CELL COUNT(AUTO) 4.37 MIL/uL (4.50-5.90); RED CELL DISTRIBUTION WIDTH 13.9 % (11.5-14.5)
[2021-02-19 17:42] LABS: ANION GAP 4 mmol/L (8-16); CALCIUM, TOTAL 8.3 mg/dL (8.8-10.5); CARBON DIOXIDE 32 mmol/L (22-29); CHLORIDE 108 mmol/L (98-107); CREATININE 0.76 mg/dL (0.60-1.30); GLOMERULAR FILTR. RATE CALC > 60 mL/min (>60); GLUCOSE,RANDOM 101 mg/dL (70-110); SODIUM SERUM 144 mmol/L (136-145); UREA NITROGEN, BLOOD 7 mg/dL (7-18)
[2021-02-19 17:43] LABS: LITHIUM 0.53 mmol/L (0.60-1.20)
[2021-02-19 17:48] LABS: ALANINE AMINOTRANSFERASE 25 U/L (12-78); ALBUMIN 3.6 g/dL (3.4-5.0); ALKALINE PHOSPHATASE 101 U/L (46-116); ASPARTATE AMINOTRANSFERASE 14 U/L (15-37); BILIRUBIN,TOTAL 0.2 mg/dL (0.1-1.0); TOTAL PROTEIN, SERUM 6.4 g/dL (6.4-8.2); VALPROIC ACID < 3 mcg/mL (50-100)
[2021-02-19 21:30] VITALS: BP 119/73
== END 2021-02-19 22:21 | disposition home or self-care (01) ==
LOC: EMS 15:31
DX: R41.0 Disorientation, unspecified (principal); J44.9 Chronic obstructive pulmonary disease, unspecified; E78.00 Pure hypercholesterolemia, unspecified; F20.9 Schizophrenia, unspecified; F17.210 Nicotine dependence, cigarettes, uncomplicated; Z20.822 Contact with and (suspected) exposure to COVID-19
CPT/HCPCS: 36415; 70450; 80053; 80164; 80178; 85025; 87426; 99284; G0480

== ENCOUNTER 2024-10-09 08:51 | Inpatient (IN) | payer MEDICAID ==
[~2024-10-09] VITALS: Ht 172.7 cm; Wt 60.5 kg
[~2024-10-09 08:51] MED LIST changes: +ATOR20TA PO; -ATOR20TA86 PO
[2024-10-09] MEDS: MethylPREDNISolone SOD SUCC 125 MG/2 ML VIAL IVP ONE (09:31)
[2024-10-09 09:33] LABS: BASOPHILS % (AUTO) 0.2 % (0.0-2.0); EOSINOPHILS % (AUTO) 2.4 % (1.0-6.0); HEMATOCRIT 43.8 % (41-53); HEMOGLOBIN 13.7 g/dL (13.5-17.5); LYMPHOCYTES # (AUTO) 0.6 K/uL (1.0-4.8); LYMPHOCYTES % (AUTO) 7.4 % (22.0-44.0); MEAN CORPUSCULAR HEMOGLOBIN 28.7 pg (26.0-34.0); MEAN CORPUSCULAR HGB CONC 31.2 G/dL (31.0-37.0); MEAN CORPUSCULAR VOLUME 92 fL (80-100); MONOCYTES # (AUTO) 0.6 K/uL (0.1-1.0); MONOCYTES % (AUTO) 7.6 % (2.0-9.0); NEUTROPHILS # (AUTO) 6.2 K/uL (1.8-7.7); NEUTROPHILS % (AUTO) 82.4 % (40.0-70.0); PLATELET COUNT (AUTO) 303 K/uL (150-450); RED BLOOD CELL COUNT(AUTO) 4.76 MIL/uL (4.50-5.90); RED CELL DISTRIBUTION WIDTH 15.3 % (11.5-14.5); WHITE BLOOD COUNT (AUTO) 7.5 K/uL (4.5-11.0)
[2024-10-09 09:37] LABS: ANION GAP 1 mmol/L (8-16); CALCIUM, TOTAL 8.2 mg/dL (8.8-10.5); CARBON DIOXIDE 39 mmol/L (22-29); CHLORIDE 104 mmol/L (98-107); CREATININE 0.82 mg/dL (0.60-1.30); GLOMERULAR FILTR. RATE CALC > 60 mL/min (>60); GLUCOSE,RANDOM 124 mg/dL (70-110); POTASSIUM 5.4 mmol/L (3.5-5.1); SODIUM SERUM 143 mmol/L (136-145); UREA NITROGEN, BLOOD 16 mg/dL (7-18)
[2024-10-09 09:38] VITALS: PULSE 75; RESP 20; O2SAT 96
[2024-10-09] MEDS: ALBUTEROL SULFATE 2.5 MG/0.5 ML NEB SOLUTION NEB ONE (09:38)
[2024-10-09] MEDS: IPRATROPIUM BROMIDE 0.5 MG/2.5 ML NEB SOLUTION NEB ONE (09:38)
[2024-10-09 09:45] LABS: TROPONIN I-HIGH SENSITIVITY 37 ng/L (<76)
[2024-10-09 09:48] LABS: LACTIC ACID 1.1 mmol/L (0.4-2.0)
[2024-10-09 09:49] LABS: B-TYPE NATRIURETIC PEPTIDE 584 pg/mL (0-100)
[2024-10-09 09:53] VITALS: PULSE 70; RESP 20; O2SAT 98
[2024-10-09] MEDS ORDERED: ACETAMINOPHEN 325 MG TABLET PO PRN (12:45)
[2024-10-09] MEDS ORDERED: ONDANSETRON HCL 4 MG/2 ML VIAL IVP PRN (12:45)
[2024-10-09 13:19] LABS: TROPONIN I-HIGH SENSITIVITY 44 ng/L (<76)
[2024-10-09 13:21] LABS: APPEARANCE,URINE CLEAR (CLEAR); BILIRUBIN,URINE NEGATIVE (NEGATIVE); COLOR,URINE LIGHT YELLOW (YELLOW); GLUCOSE, URINE (UA) NEGATIVE (NEGATIVE); KETONES,URINE NEGATIVE (NEGATIVE); LEUKOCYTE ESTERASE ,URINE NEGATIVE (NEGATIVE); NITRATE,URINE NEGATIVE (NEGATIVE); OCCULT BLOOD,URINE NEGATIVE (NEGATIVE); PROTEIN,URINE NEGATIVE (NEGATIVE); SPECIFIC GRAVITIY, URINE 1.008 (1.003-1.030); UROBILINOGEN,URINE <=1.0 mg/dL (<=1.0)
[2024-10-09] MEDS: FUROSEMIDE 20 MG/2 ML VIAL IVP ONE (13:34)
[2024-10-09] MEDS ORDERED: ATOR10TA69 PO (14:56)
[2024-10-09] MEDS ORDERED: LITH300C3 PO (15:03)
[2024-10-09] MEDS ORDERED: OXCA300T70 PO (15:03)
[2024-10-09] MEDS ORDERED: HALO10TA21 PO (15:03)
[2024-10-09] MEDS ORDERED: OLAN1TAB7 PO (15:03)
[2024-10-09] MEDS ORDERED: OLAN10TA74 PO (15:03)
[2024-10-09] MEDS ORDERED: BENZ-247 PO (15:03)
[2024-10-09] MEDS: HEPARIN SODIUM,PORCINE 5,000 UNITS/ML VIAL SQ SCH (17:01)
[2024-10-09] MEDS: MethylPREDNISolone SOD SUCC 125 MG/2 ML VIAL IVP SCH (17:01)
[2024-10-09 18:18] VITALS: BP 106/54; PULSE 73; RESP 16; TEMP 97.6; O2SAT 96
[2024-10-09 19:51] VITALS: BP 97/57; PULSE 71; RESP 19; TEMP 98.2; O2SAT 93
[2024-10-09] MEDS: DOCUSATE SODIUM 100 MG CAPSULE PO SCH (23:15)
[2024-10-10] VITALS (10 sets, daily range): BP systolic 99–126; BP diastolic 53–69; PULSE 72–82; RESP 18–22; TEMP 98.1–98.6; O2SAT 92–99
[2024-10-10] MEDS: ALBUTEROL SULFATE 2.5 MG/0.5 ML NEB SOLUTION NEB PRN (07:26)
[2024-10-10] MEDS: FAMOTIDINE 20 MG TABLET PO SCH (08:48)
[2024-10-10 08:51] LABS: BASOPHILS % (AUTO) 0.1 % (0.0-2.0); EOSINOPHILS % (AUTO) 0 % (1.0-6.0); HEMATOCRIT 44.1 % (41-53); HEMOGLOBIN 13.7 g/dL (13.5-17.5); LYMPHOCYTES # (AUTO) 0.3 K/uL (1.0-4.8); LYMPHOCYTES % (AUTO) 3.4 % (22.0-44.0); MEAN CORPUSCULAR HEMOGLOBIN 28.6 pg (26.0-34.0); MEAN CORPUSCULAR HGB CONC 31.1 G/dL (31.0-37.0); MEAN CORPUSCULAR VOLUME 92 fL (80-100); MONOCYTES # (AUTO) 0.2 K/uL (0.1-1.0); MONOCYTES % (AUTO) 2.8 % (2.0-9.0); NEUTROPHILS # (AUTO) 7.4 K/uL (1.8-7.7); PLATELET COUNT (AUTO) 314 K/uL (150-450); RED BLOOD CELL COUNT(AUTO) 4.79 MIL/uL (4.50-5.90); RED CELL DISTRIBUTION WIDTH 15.1 % (11.5-14.5); WHITE BLOOD COUNT (AUTO) 7.9 K/uL (4.5-11.0)
[2024-10-10 08:56] LABS: NEUTROPHILS % (AUTO) 93.7 % (40.0-70.0)
[2024-10-10 08:59] LABS: ANION GAP -2 mmol/L (8-16); CALCIUM, TOTAL 8.8 mg/dL (8.8-10.5); CHLORIDE 104 mmol/L (98-107); CREATININE 0.69 mg/dL (0.60-1.30); GLOMERULAR FILTR. RATE CALC > 60 mL/min (>60); GLUCOSE,RANDOM 109 mg/dL (70-110); SODIUM SERUM 144 mmol/L (136-145); UREA NITROGEN, BLOOD 14 mg/dL (7-18)
[2024-10-10 09:06] LABS: CARBON DIOXIDE 42 mmol/L (22-29)
[2024-10-10] MEDS ORDERED: NICOTINE 21 MG/24 HOUR PATCH TD PRN (12:00)
[2024-10-10 12:16] LABS: SOURCE, BLOOD GAS ARTERIAL; TEMPERATURE, FAHRENHEIT, BG 98.2 FAHREN (96.0-98.6)
[2024-10-10 12:31] LABS: ABG BASE EXCESS 12.5 mmol/L (-2.0-3.0); ABG CARBOXYHEMOGLOBIN 1.6 % (0.5-1.5); ABG HCO3 33.2 mmol/L (21.0-28.0); ABG METHEMOGLOBIN 0.1 % (0.0-1.5); ABG OXYGEN CONTENT 18.2 mL/dL (15.0-23.0); ABG OXYGEN SATURATION 95.6 % (94.0-98.0); ABG PH 7.333 (7.350-7.450); ABG TOTAL HEMOGLOBIN 13.7 G/dL (13.5-17.5); PO2, ARTERIAL BG 79.3 mmHg (83.0-108.0)
[2024-10-10 12:32] LABS: ABG A-A DIFF O2 33.3 mmHg (10-20.0); ABG PCO2 74 mmHg (32.0-48.0); ALLEN TEST, BLOOD GAS Positive; O2 DEVICE,BLOOD GAS NC (ROOM AIR); SITE, BLOOD GAS LFT RADIAL
[2024-10-10] MEDS: BUDESONIDE 0.5 MG/2 ML NEB SOLUTION NEB SCH (20:38)
[2024-10-11] VITALS (8 sets, daily range): BP systolic 97–118; BP diastolic 58–69; PULSE 54–77; RESP 16–20; TEMP 97.8–98.4; O2SAT 92–98
[2024-10-11 06:25] LABS: BASOPHILS % (AUTO) 0.1 % (0.0-2.0); EOSINOPHILS % (AUTO) 0 % (1.0-6.0); HEMATOCRIT 41.7 % (41-53); LYMPHOCYTES # (AUTO) 0.3 K/uL (1.0-4.8); LYMPHOCYTES % (AUTO) 4.2 % (22.0-44.0); MEAN CORPUSCULAR HEMOGLOBIN 28.6 pg (26.0-34.0); MEAN CORPUSCULAR HGB CONC 31.2 G/dL (31.0-37.0); MEAN CORPUSCULAR VOLUME 92 fL (80-100); MONOCYTES # (AUTO) 0.2 K/uL (0.1-1.0); MONOCYTES % (AUTO) 3.1 % (2.0-9.0); NEUTROPHILS # (AUTO) 7.4 K/uL (1.8-7.7); PLATELET COUNT (AUTO) 320 K/uL (150-450); RED BLOOD CELL COUNT(AUTO) 4.55 MIL/uL (4.50-5.90); RED CELL DISTRIBUTION WIDTH 15.1 % (11.5-14.5)
[2024-10-11 06:26] LABS: NEUTROPHILS % (AUTO) 92.6 % (40.0-70.0)
[2024-10-11 06:35] LABS: CALCIUM, TOTAL 8.9 mg/dL (8.8-10.5); CHLORIDE 104 mmol/L (98-107); CREATININE 0.69 mg/dL (0.60-1.30); GLOMERULAR FILTR. RATE CALC > 60 mL/min (>60); GLUCOSE,RANDOM 125 mg/dL (70-110); POTASSIUM 5.1 mmol/L (3.5-5.1); SODIUM SERUM 145 mmol/L (136-145); UREA NITROGEN, BLOOD 13 mg/dL (7-18)
[2024-10-11 07:10] LABS: ANION GAP 0 mmol/L (8-16); CARBON DIOXIDE 42 mmol/L (22-29)
[2024-10-11] MEDS: SODIUM CHLORIDE 0.9% 1,000 ML IV ONE (12:29)
[2024-10-11 17:10] LABS: ABG BASE EXCESS 10.1 mmol/L (-2.0-3.0); ABG CARBOXYHEMOGLOBIN 1.4 % (0.5-1.5); ABG METHEMOGLOBIN 0.1 % (0.0-1.5); ABG OXYGEN CONTENT 17.1 mL/dL (15.0-23.0); ABG OXYGEN SATURATION 85.4 % (94.0-98.0); ABG OXYHEMOGLOBIN 84.1 % (94.0-98.0); ABG PCO2 49 mmHg (32.0-48.0); ABG PH 7.457 (7.350-7.450); ABG TOTAL HEMOGLOBIN 14.5 G/dL (13.5-17.5); SOURCE, BLOOD GAS ARTERIAL; TEMPERATURE, FAHRENHEIT, BG 97.8 FAHREN (96.0-98.6)
[2024-10-11 17:25] LABS: ALLEN TEST, BLOOD GAS POS; PO2, ARTERIAL BG 43.1 mmHg (83.0-108.0); SITE, BLOOD GAS LFT RADIAL
[2024-10-12] VITALS (7 sets, daily range): BP systolic 108–134; BP diastolic 64–84; PULSE 56–79; RESP 18–20; TEMP 98.1–98.6; O2SAT 85–96
[2024-10-12 06:37] LABS: EOSINOPHILS % (AUTO) 0 % (1.0-6.0); HEMATOCRIT 42.6 % (41-53); HEMOGLOBIN 13.4 g/dL (13.5-17.5); LYMPHOCYTES # (AUTO) 0.3 K/uL (1.0-4.8); LYMPHOCYTES % (AUTO) 4.3 % (22.0-44.0); MEAN CORPUSCULAR HEMOGLOBIN 28.6 pg (26.0-34.0); MEAN CORPUSCULAR HGB CONC 31.5 G/dL (31.0-37.0); MEAN CORPUSCULAR VOLUME 91 fL (80-100); MONOCYTES # (AUTO) 0.2 K/uL (0.1-1.0); MONOCYTES % (AUTO) 2.7 % (2.0-9.0); NEUTROPHILS # (AUTO) 6.1 K/uL (1.8-7.7); PLATELET COUNT (AUTO) 290 K/uL (150-450); RED BLOOD CELL COUNT(AUTO) 4.68 MIL/uL (4.50-5.90); RED CELL DISTRIBUTION WIDTH 14.8 % (11.5-14.5); WHITE BLOOD COUNT (AUTO) 6.6 K/uL (4.5-11.0)
[2024-10-12 06:56] LABS: ALANINE AMINOTRANSFERASE 52 U/L (12-78); ALBUMIN 2.7 g/dL (3.4-5.0); ALKALINE PHOSPHATASE 97 U/L (46-116); ANION GAP 2 mmol/L (8-16); ASPARTATE AMINOTRANSFERASE 25 U/L (15-37); BILIRUBIN,TOTAL 0.4 mg/dL (0.1-1.0); CALCIUM, TOTAL 9.1 mg/dL (8.8-10.5); CARBON DIOXIDE 40 mmol/L (22-29); CHLORIDE 104 mmol/L (98-107); CREATININE 0.62 mg/dL (0.60-1.30); GLOMERULAR FILTR. RATE CALC > 60 mL/min (>60); GLUCOSE,RANDOM 107 mg/dL (70-110); POTASSIUM 4.7 mmol/L (3.5-5.1); SODIUM SERUM 146 mmol/L (136-145); TOTAL PROTEIN, SERUM 5.2 g/dL (6.4-8.2); UREA NITROGEN, BLOOD 14 mg/dL (7-18)
[2024-10-13] VITALS (9 sets, daily range): BP systolic 110–128; BP diastolic 71–82; PULSE 57–68; RESP 18–20; TEMP 97.9–98.4; O2SAT 88–99
[2024-10-13] MEDS ORDERED: ALBU18HF12 IH (11:52)
[2024-10-13] MEDS ORDERED: PRED-554 PO (11:52)
[2024-10-13] MEDS: PredniSONE 10 MG TABLET PO SCH (17:06)
[2024-10-14] VITALS (8 sets, daily range): BP systolic 115–144; BP diastolic 69–88; PULSE 54–66; RESP 16–20; TEMP 97.7–98.4; O2SAT 90–100
== END 2024-10-14 21:30 | disposition home or self-care (01) | DRG 140 ==
LOC: EMS 08:54 → EDH 12:44 → 5N 14:50 → 6S 10-13 03:24 → 4E 10-14 05:39
PROVIDERS: ADMIT Internal Medicine; ATTEND Internal Medicine
DX: J44.1 Chronic obstructive pulmonary disease with (acute) exacerbation (principal); J96.21 Acute and chronic respiratory failure with hypoxia; I50.9 Heart failure, unspecified; J96.22 Acute and chronic respiratory failure with hypercapnia; F17.200 Nicotine dependence, unspecified, uncomplicated; F20.9 Schizophrenia, unspecified; E78.00 Pure hypercholesterolemia, unspecified
CPT/HCPCS: 71045; 71250; 80048; 80053; 81003; 82805; 83605; 83880; 84484; 85025; 93005; 93306; 94640; 94660; 96374; 96375; 99285; J1644; J1940; J2919; J7030; 36415-L1; 36415-TC; J7512; J7613; Z7610